=== PATIENT | male | born 1985 | race African-American/Black ===

== ENCOUNTER 2020-05-09 11:27 | Emergency (ER) | payer SELFPAY ==
[~2020-05-09] VITALS: Ht 177.8 cm; Wt 97.0 kg
[2020-05-09 11:30] VITALS: BP 145/94
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
--- NOTE | 2020-05-09 12:39 | RAD ---
Study: XR FOOT_RIGHT 3 VIEWS Indication: Blunt trauma to the second toe. Comparison: None. Findings: Comminuted, intra-articular fracture centered at the distal aspect of the second ray proximal phalanx with extension into the PIP joint. Hazy mineralization surrounds the shaft of this phalanx suggestin g that this fracture is subacute in age. Adjacent soft tissue edema. No additional fracture seen thro ughout the foot. Impression: Comminuted fracture of the second ray proximal phalanx with intra-articular extension into the PIP frank int. The fracture exhibits features of subacuity with surrounding periosteal new bone formation. Yolanda elate with the timing of trauma. Electronically signed by: SUKUMAR MUÑOZ MD (05/09/2020 12:37 PM) [id number]
[2020-05-09] MEDS ORDERED: HYDR-2155 PO (13:29)
== END 2020-05-09 14:16 | disposition home or self-care (01) ==
LOC: ER 11:27
DX: S92.511A Displaced fracture of proximal phalanx of right lesser toe(s), initial encounter for closed fracture (principal); F17.210 Nicotine dependence, cigarettes, uncomplicated; W22.8XXA Striking against or struck by other objects, initial encounter; Y93.89 Activity, other specified; Y92.89 Other specified places as the place of occurrence of the external cause; Y99.8 Other external cause status
CPT/HCPCS: 73630; 99283